=== PATIENT | male | born 1960 | race Two or more races ===

== ENCOUNTER 2017-08-19 13:28 | Outpatient (CLI) | payer OTHER ==
--- NOTE | 2017-08-19 16:00 | Diagnostic Imaging Report ---
Clinical Indication: Epigastric pain Technique: No oral contrast utilized, per emergency room physician request IV administration nonionic contrast. Venous phase spiral acquisition obtained through the abdomen and pelvis. Multiplanar reconstructions were generated. Total dose length product 747 mGycm. CTDIvol(s) 14 mGy. Dose reduction achieved using automated exposure control Comparison: None Findings: There is apparent gastric wall thickening in the region of the gastric cardia, although this is possibly just artifact of under distention. There may be a small sliding-type hiatal hernia. There is questionable gastric wall thickening in the region of the pylorus, although this area is likewise contracted and suggest an artifact of under distention. The duodenum is unremarkable. No small bowel distention or small bowel wall thickening. Contrast is seen throughout the entirety of the small bowel, and through most of the colon. The appendix is not definitely identified, but no findings to suggest acute appendicitis are evident. No evidence of diverticulosis or diverticulitis. No free or loculated intraperitoneal air or fluid. The liver demonstrates a peripheral 14 mm low-attenuation lesion which demonstrates nonspecific soft tissue attenuation. This is in segment 5 near the tip. No other focal hepatic abnormality is demonstrated. The gallbladder, bile ducts, pancreas, spleen, adrenals, kidneys are unremarkable. No retroperitoneal or mesenteric mass or adenopathy. No pelvic mass or adenopathy. Unremarkable bladder and seminal vesicles. Ureters and renal collecting systems are unremarkable. The included lung bases are clear. The bones are unremarkable. Impression: Appearing gastric wall thickening in the region of the gastric cardia. Could be artifact of under distention, but mass not excludable. If clinically indicated, consider endoscopy for further evaluation Equivocal gastric wall thickening in the region of the pylorus, most likely artifact of under distention but mass likewise not completely excludable 14 mm peripheral low-attenuation right lobe hepatic lesion, demonstrates nonspecific attenuation. Differential considerations include complex cyst, atypical hemangioma, neoplasm. Consider MRI or ultrasound for better characterization Findings discussed by phone with Dr. Winchester at the time of interpretation The CT scanner at [facility] is accredited by the [employer] and the scans are performed using protocols designed to limit radiation exposure to as low as reasonably achievable to attain images of sufficient resolution adequate for diagnostic evaluation.
== END 2017-08-19 15:28 | disposition home or self-care (01) ==
LOC: CAT 13:28
DX: R10.13 Epigastric pain (principal); K76.9 Liver disease, unspecified
CPT/HCPCS: 74177; Q9967